=== PATIENT | male | born 1955 | race African-American/Black ===

== ENCOUNTER 2021-08-10 12:35 | Emergency (ER) | payer BC ==
[~2021-08-10] VITALS: Ht 175.3 cm; Wt 75.0 kg
[2021-08-10 12:55] VITALS: BP 148/79
== END 2021-08-10 18:20 | disposition home or self-care (01) ==
LOC: ER 12:35
DX: F10.10 Alcohol abuse, uncomplicated (principal); E11.9 Type 2 diabetes mellitus without complications; I10 Essential (primary) hypertension; Z88.2 Allergy status to sulfonamides; F12.10 Cannabis abuse, uncomplicated
CPT/HCPCS: 99283